=== PATIENT | female | born 1990 | race Caucasian/White ===

== ENCOUNTER 2017-09-28 08:00 | Outpatient (CLI) | payer MEDICAID ==
[2017-09-28 12:52] LABS: BASOPHILS # (AUTO) 0.1 10^3/uL (0.0-0.1); EOSINOPHILS # (AUTO) 0.2 10^3/uL (0.0-0.7); EOSINOPHILS % (AUTO) 1.7 %; HGB - HEMOGLOBIN 12.7 g/dL (12.0-16.0); LYMPHOCYTES % (AUTO) 32.9 %; MEAN CORPUSCULAR HGB CONC 33.5 g/dL (32.0-36.0); MEAN CORPUSCULAR VOLUME 83.6 fL (81.0-99.0); MEAN PLATELET VOLUME 10.1 fL (7.9-10.8); MONOCYTES # (AUTO) 0.8 10^3/uL (0.0-1.0); MONOCYTES % (AUTO) 8.8 %; NEUTROPHILS # (AUTO) 5.1 10^3/uL (1.5-6.6); NEUTROPHILS % (AUTO) 55.6 %; PLT - PLATELET COUNT 232 10^3/uL (130-450); RED BLOOD COUNT 4.54 10^6/uL (4.20-5.40); RED CELL DISTRIBUTION WIDTH 15.3 % (12.0-15.0); WHITE BLOOD COUNT 9.2 x10^3/uL (4.8-10.8)
[2017-09-28 13:26] LABS: ALBUMIN 4.4 g/dL (3.2-5.5); ALBUMIN/GLOBULIN RATIO 1.3 (1.0-2.2); ALKALINE PHOSPHATASE 48 IU/L (42-121); ALT ALANINE AMINOTRANSFERASE 19 IU/L (10-60); AST ASPARTATE AMINOTRANSFERASE 25 IU/L (10-42); BILIRUBIN,TOTAL 0.5 mg/dL (0.2-1.0); BUN - BLOOD UREA NITROGEN 13 mg/dL (6-20); CALCIUM 9.5 mg/dL (8.5-10.3); CARBON DIOXIDE - CO2 23 mmol/L (21-32); CHLORIDE 108 mmol/L (101-111); CHOLESTEROL 167 mg/dL; CREATININE 0.8 mg/dL (0.4-1.0); GFR - MDRD 87 (>89); GLUCOSE 78 mg/dL (70-100); HDL CHOLESTEROL 42 mg/dL; LDL CHOLESTEROL,CALCULATED 88 mg/dL; LDL/HDL RATIO 2.1 (<4.4); SODIUM 138 mmol/L (135-145); TOTAL PROTEIN 7.9 g/dL (6.7-8.2); VLDL CHOLESTEROL 37 mg/dL
== END 2017-09-28 08:01 | disposition home or self-care (01) ==
LOC: LAB.N 08:00
PROVIDERS: ATTEND Nurse Practitioner Gerontology
DX: Z13.9 Encounter for screening, unspecified (principal)
CPT/HCPCS: 36415; 80053; 80061; 83721; 84443; 85025

== ENCOUNTER 2019-01-03 10:00 | Emergency (ER) | payer MEDICAID ==
[2019-01-03] MEDS ORDERED: IBUPROFEN 800 MG TABLET PO STA (10:29)
--- NOTE | 2019-01-03 10:37 | ED Physician Documentation ---
PD HPI UPPER EXT INJURY - Stated complaint Stated Complaint: GLF/HAND PX - Chief complaint Chief Complaint: Trauma Ext - History obtained from History obtained from: Patient - History of Present Illness Location: Right, Wrist, Hand Type of injury: Fall Where injury occurred: Other (bus stop) Timing - onset: How many hours ago (1) Timing - duration: Hours (1) Timing - details: Abrupt onset Pain level max: 8 Pain level now: 6 Improved by: Rest, Immobilization Worsened by: Moving, Palpating Associated symptoms: No: Weakness, Numbness, Tingling, Swelling, Discolored Contributing factors: No: Anticoagulated - Additonal information Additional information: pt is right handed. worse with movement. 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 - Past Surgical History Past Surgical History: Yes Ortho: Spine surgery HEENT: Tonsil/Adenoidectomy - Present Medications Home Medications: Ambulatory Orders Medication Instructions Recorded Confirmed Citalopram Hydrobromide [Celexa] 20 mg PO DAILY 01/03/19 01/03/19 Ibuprofen [Motrin] 800 mg PO Q8H PRN #30 tablet 01/03/19 - Allergies Allergies/Adverse Reactions: Allergies Allergy/AdvReac Type Severity Reaction Status Date / Time No Known Drug Allergies Allergy Verified 01/03/19 10:20 - Social History Does the pt smoke?: No Smoking Status: Never smoker Does the pt drink ETOH?: Yes ETOH Use: Liquor - Immunizations Immunizations are current?: Yes PD ED PE NORMAL - Vitals Vital signs reviewed: Yes - General General: Alert and oriented X 3, No acute distress, Well developed/nourished - Derm Derm: Warm and dry - Extremities Extremities: Other (Diffuse tenderness to palpation over the right wrist, mainly tender palpation over the fourth and fifth metacarpals of the hand. No scaphoid tenderness. No snuffbox tenderness. Neurovascularly intact. Limited range of motion of the wrist and hand secondary to pain. No lacerations or abrasions.) - Neuro Neuro: Alert and oriented X 3 - Psych Psych: Normal mood, Normal affect Results - Vitals Vitals: Vital Signs - 24 hr 01/03/19 01/03/19 10:06 11:57 Temperature 37.0 C Heart Rate 68 69 Respiratory 14 14 Rate Blood Pressure 137/84 H 123/82 H O2 Saturation 97 100 Oxygen O2 Source Room air - Rads (name of study) Right hand x-ray Radiology: Prelim report reviewed, EMP read contemporaneously, See rad report (Correlates questionable scaphoid finding of focal tenderness in the region of the scaphoid. If further radiographic evaluation is desired, consider dedicated wrist views with scaphoid view. ) Right wrist x-ray Radiology: Prelim report reviewed, EMP read contemporaneously, See rad report (Correlates questionable scaphoid finding of focal tenderness in the region of the scaphoid. If further radiographic evaluation is desired, consider dedicated wrist views with scaphoid view. ) PD MEDICAL DECISION MAKING - ED course Complexity details: reviewed results, re-evaluated patient, considered differential, d/w patient ED course: 28-year-old female presents to the emergency department after a fall at the bus stop. Has right hand and wrist pain. No snuffbox tenderness. Placed in a Velcro splint for comfort. Patient counseled regarding signs and symptoms for which I believe and urgent re-evaluation would be necessary. Patient with good understanding of and agreement to plan and is comfortable going home at this time This document was made in part using voice recognition software. While efforts are made to proofread this document, sound alike and grammatical errors may occur. Departure - Departure Disposition: 01 Home, Self Care Clinical Impression: Sprain of wrist, right Qualifiers: Encounter type: initial encounter Qualified Code(s): S63.501A - Unspecified sprain of right wrist, initial encounter Condition: Good Instructions: ED Sprain Wrist Follow-Up: Sheryl Corral ARNP [Primary Care Provider] - Within 1 week Prescriptions: Ibuprofen [Motrin] 800 mg PO Q8H PRN #30 tablet PRN Reason: PAIN &/OR FEVER Comments: Use the splints for the next week as needed for pain. There are no fractures on your x-ray today. Return if you worsen. Discharge Date/Time: 01/03/19 11:58
--- NOTE | 2019-01-03 11:19 | XRAY Report ---
Reason: fall, R wrist pain Procedure Date: 01/03/2019 Accession Number: [id number] / [id number] Procedure: XR - Wrist 4 View RT CPT Code: FULL RESULT: EXAMS: RIGHT HAND AND WRIST RADIOGRAPHY EXAM DATE: 01/03/2019 10:46 AM. CLINICAL HISTORY: Fall on outstretched hand injury today with right wrist pain. COMPARISON: None. TECHNIQUE: 3 views each of hand and wrist. FINDINGS: Seen on one view only, oblique view is the suggestion of an irregularity about the cortex of the mid scaphoid. No other fracture or dislocation is identified. No radiopaque foreign body seen. IMPRESSION: Correlates questionable scaphoid finding of focal tenderness in the region of the scaphoid. If further radiographic evaluation is desired, consider dedicated wrist views with scaphoid view. [facility]
--- NOTE | 2019-01-03 11:19 | XRAY Report ---
Reason: fall, R hand pain Procedure Date: 01/03/2019 Accession Number: [id number] / [id number] Procedure: XR - Hand 3 View RT CPT Code: FULL RESULT: EXAMS: RIGHT HAND AND WRIST RADIOGRAPHY EXAM DATE: 01/03/2019 10:46 AM. CLINICAL HISTORY: Fall on outstretched hand injury today with right wrist pain. COMPARISON: None. TECHNIQUE: 3 views each of hand and wrist. FINDINGS: Seen on one view only, oblique view is the suggestion of an irregularity about the cortex of the mid scaphoid. No other fracture or dislocation is identified. No radiopaque foreign body seen. IMPRESSION: Correlates questionable scaphoid finding of focal tenderness in the region of the scaphoid. If further radiographic evaluation is desired, consider dedicated wrist views with scaphoid view. [facility]
[2019-01-03 11:58] VITALS: BP 123/82
== END 2019-01-03 11:58 | disposition home or self-care (01) ==
LOC: ED 10:00
DX: S63.501A Unspecified sprain of right wrist, initial encounter (principal); W18.39XA Other fall on same level, initial encounter; Y93.H9 Activity, other involving exterior property and land maintenance, building and construction; Y92.811 Bus as the place of occurrence of the external cause
CPT/HCPCS: 73110; 73130; 99283; A9270